=== PATIENT | female | born 1965 | race Two or more races ===

== ENCOUNTER 2024-04-06 15:30 | Outpatient (RCR) | payer MEDICAID, SELFPAY | END 2024-04-29 23:59 | disposition home or self-care (01) | LOC: SCTC 15:30 | PROVIDERS: PCP Physician Assistant; Referring Provider Physician Assistant; Visit Provider Nurse Practitioner Family | DX: Z08 Encounter for follow-up examination after completed treatment for malignant neoplasm (principal); Z85.3 Personal history of malignant neoplasm of breast; Z90.12 Acquired absence of left breast and nipple; M85.88 Other specified disorders of bone density and structure, other site; Z79.83 Long term (current) use of bisphosphonates; F32.A Depression, unspecified | CPT/HCPCS: 99212; G0463 ==

== ENCOUNTER → 2024-06-22 | Outpatient (CLI) | payer MEDICAID, SELFPAY ==
--- NOTE | 2024-06-22 12:30 | XR_ITS ---
Examination: Transvaginal ultrasound of the pelvis, complete Technique: Transvaginal sonographic images pelvis performed using flores scale imaging Exam date and time: June 22, 2024 1315 hours INDICATIONS: Postmenopausal bleeding beginning 3 months ago. FINDINGS: Uterus 6.0 x 3.6 x 3.8 cm Endometrial stripe 0.5 cm No discrete uterine mass Ovaries obscured by bowel gas IMPRESSION: Borderline thickening endometrial stripe 0.5 cm, recommend 3 month follow-up transvaginal pelvic sonography.
== END | disposition home or self-care (01) ==
LOC: CDIM 12:54
PROVIDERS: Referring Provider Physician Assistant; Visit Provider Physician Assistant
DX: R93.89 Abnormal findings on diagnostic imaging of other specified body structures (principal)
CPT/HCPCS: 76830

== ENCOUNTER → 2024-09-20 | Outpatient (CLI) | payer MEDICAID, SELFPAY ==
--- NOTE | 2024-09-20 14:30 | XR_ITS ---
Examination: Screening digital mammography, bilateral Computer aided detection 3-D breast Tomosynthesis, bilateral Date and time of exam: September 20, 2024 1434 hours Compared to mammograms dating to June 24, 2021 Indication: Screening Technique: Nonmagnified MLO, CC views of the breasts to been obtained, reconstructed from 3-D Tomosynthesis images. R2 computer aided detection program utilized for evaluation of suspicious masses and/or abnormal calcifications. 3-D Tomosynthesis images obtained. Findings: Scattered areas of fibroglandular density Stable asymmetric glandular tissue upper outer quadrant right breast No interval suspicious mass Impression: BI-RADS category II: Benign Findings. Recommend 1 year follow-up mammogram.
== END | disposition home or self-care (01) ==
PROVIDERS: PCP Physician Assistant; Referring Provider Nurse Practitioner Family; Visit Provider Nurse Practitioner Family
DX: Z12.31 Encounter for screening mammogram for malignant neoplasm of breast (principal); R92.1 Mammographic calcification found on diagnostic imaging of breast; D05.12 Intraductal carcinoma in situ of left breast
CPT/HCPCS: 77063; 77067

== ENCOUNTER → 2024-09-29 | Outpatient (CLI) | payer MEDICAID, SELFPAY ==
--- NOTE | 2024-09-29 10:00 | XR_ITS ---
Examination: Transvaginal ultrasound of the pelvis, complete Technique: Transvaginal sonographic images pelvis performed using flores scale imaging Exam date and time: September 29, 2024 1018 hours INDICATIONS: Endometrial stripe 0.5 cm on ultrasound June 22, 2024 FINDINGS: Uterus 7.0 cm endometrial stripe 0.4 cm Minimal fluid in the endometrial stripe No solid uterine mass Ovaries obscured by bowel gas IMPRESSION: Uterine endometrial stripe 0.4 cm, no uterine mass.
== END | disposition home or self-care (01) ==
LOC: CDIM 09:56
PROVIDERS: PCP Physician Assistant; Referring Provider Physician Assistant; Visit Provider Physician Assistant
DX: R93.89 Abnormal findings on diagnostic imaging of other specified body structures (principal)
CPT/HCPCS: 76830

== ENCOUNTER 2024-10-09 14:38 | Outpatient (RCR) | payer MEDICAID, SELFPAY | END 2024-10-28 23:59 | disposition home or self-care (01) | LOC: SCTC 14:38 | PROVIDERS: PCP Physician Assistant; Referring Provider Physician Assistant; Visit Provider Nurse Practitioner Family | DX: M85.89 Other specified disorders of bone density and structure, multiple sites (principal); Z86.000 Personal history of in-situ neoplasm of breast; Z92.3 Personal history of irradiation; Z92.29 Personal history of other drug therapy; Z90.12 Acquired absence of left breast and nipple | CPT/HCPCS: 99212; G0463 ==